=== PATIENT | male | born 1965 | race African-American/Black ===

== ENCOUNTER 2021-05-07 02:26 | Emergency (ER) | payer OTHER ==
[~2021-05-07] VITALS: Ht 182.9 cm; Wt 79.4 kg
[2021-05-07 04:09] LABS: URINE BLOOD NEGATIVE (Negative); URINE CLARITY CLEAR; URINE COLOR YELLOW; URINE GLUCOSE-RANDOM NEGATIVE (Negative); URINE KETONES NEGATIVE (Negative); URINE LEUKOCYTES NEGATIVE (Negative); URINE NITRITE NEGATIVE (Negative); URINE PROTEIN 1+ (Negative); URINE SPECIFIC GRAVITY >= 1.030 (1.005-1.030)
[2021-05-07 04:12] LABS: ICTOTEST (BILI CONFIRMATORY) Negative (Negative); URINE BILIRUBIN 1+ (Negative)
[2021-05-07 04:17] LABS: AMP/METHAMP POSITIVE (Negative); BARBITURATES Negative (Negative); BENZODIAZEPINES Negative (Negative); COCAINE Negative (Negative); METHADONE Negative (Negative); OPIATES Negative (Negative); PCP Negative (Negative); THC POSITIVE (Negative)
[2021-05-07 05:10] LABS: HEMATOCRIT 39.8 % (42.0-52.0); HEMOGLOBIN 13.5 gm/dL (14.0-18.0); MCH 26.8 pg (26.0-34.0); MCHC 33.8 g/dL (28.0-37.0); MCV 79.1 fL (80.0-100.0); MPV 7.4 fl. (7.2-11.1); RBC 5.03 mil/uL (4.50-6.00); RDW-CV 13.7 % (10.5-14.5); WBC 6.9 thou/uL (4.0-11.0)
[2021-05-07 05:20] LABS: CALCIUM 8.4 mg/dL (8.5-10.1); CREATININE 1.1 mg/dL (0.6-1.3); POTASSIUM 3.1 mmol/L (3.5-5.1)
[2021-05-07 05:25] LABS: ALBUMIN 3.9 g/dL (3.4-5.0); TOTAL BILIRUBIN 0.3 mg/dL (<0.1-1.0); TOTAL PROTEIN 7.3 g/dL (6.4-8.2)
[2021-05-07 05:39] LABS: ALCOHOL < 10 mg/dL (<10)
[2021-05-07 05:42] LABS: ACETAMINOPHEN < 2 ug/mL (10-30)
[2021-05-07 11:37] VITALS: BP 134/72
== END 2021-05-07 11:38 | disposition home or self-care (01) ==
LOC: M.ERS 02:26
PROVIDERS: Personal Emergency Response Attendant
DX: F15.129 Other stimulant abuse with intoxication, unspecified (principal); R45.851 Suicidal ideations